=== PATIENT | female | born 1970 ===

== ENCOUNTER 2018-08-22 06:06 | Observation (INO) | payer BC ==
[2018-08-14 09:45] VITALS: BMI 21.9
[2018-08-22] MEDS ORDERED: ePHEDrine 50 mg/ml Inj ONE (07:24)
[2018-08-22] MEDS ORDERED: Midazolam 2 MG/2 ML VIAL ONE (07:24)
[2018-08-22] MEDS ORDERED: Propofol 10 mg/ml Inj (20 ML) ONE (07:24)
[2018-08-22] MEDS ORDERED: Succinylcholine Chloride 20 mg/ml Syr (5 ml) IV ONE (07:24)
[2018-08-22] MEDS ORDERED: Rocuronium 10 mg/ml (5 ml) ONE (07:24)
[2018-08-22] MEDS ORDERED: Lidocaine 4% (Laryng-O-Jet) Kit MM ONE (07:24)
[2018-08-22] MEDS ORDERED: Phenylephrine 10 mg/ml Inj ONE (07:29)
[2018-08-22] MEDS ORDERED: Lactated Ringer's 1,000 ML IV ONE ×2 (08:20→08:25)
[2018-08-22] MEDS: Bupivacaine HCl 0.5% PF (30 ml) Inj ONE ×2 (08:54→09:15)
[2018-08-22] MEDS ORDERED: Dexamethasone 4 mg/1 ml ONE (09:06)
[2018-08-22] MEDS ORDERED: Desflurane Inhalation Anesthetic Liq (240 ml) ONE (09:24)
[2018-08-22] MEDS ORDERED: Neostigmine 1:1000 (1 mg/ml) Inj ONE (10:17)
[2018-08-22] MEDS ORDERED: HYDROmorphone 0.5 mg/0.5 ml ISec IVP PRN (11:08)
[2018-08-22] MEDS ORDERED: Naloxone 0.4 mg/ml Inj (Adult) IVP PRN (11:09)
[2018-08-22] MEDS ORDERED: Oxycodone/Acetaminophen 5/325 mg Tab PO PRN (15:59)
[2018-08-22 16:47] LABS: MEAN CELL VOLUME 78.6 fl (81.0-99.0); MEAN CORPUSCULAR HEMOGLOBIN 24.6 pg (27.0-31.0); MEAN CORPUSCULAR HGB CONC 31.4 g/dL (33.0-37.0); RBC 4.04 Mil/uL (3.80-5.20); RED CELL DISTRIBUTION WIDTH 15.1 % (11.5-14.5); WHITE BLOOD COUNT 16.2 K/uL (4.8-10.8)
[2018-08-22] MEDS: Lactated Ringer's 1,000 ML IV SCH (17:06)
--- NOTE | 2018-08-22 22:00 | OP ---
PROCEDURE DATE: 08/22/2018 PREOPERATIVE DIAGNOSES: Symptomatic fibroid uterus, pelvic pressure and pain, menorrhagia. POSTOPERATIVE DIAGNOSES: Symptomatic fibroid uterus, pelvic pressure and pain, menorrhagia, bowel adhesions to the ovary. OPERATIONS PERFORMED: Robotic hysterectomy, cystoscopy with stent placement and bilateral salpingectomy, lysis of adhesions. SURGEON: Alka Bergman MD SPINNER CONTINUOUS: Aye Gomez MD. She was helpful in creating exposure with hemostasis, suction irrigation, extraction of the specimen and closure of the patient. The procedure would not have been possible without her assistance. ESTIMATED BLOOD LOSS: 50 mL. INTRAVENOUS FLUIDS: The patient received 1500 mL of D5 LR intraoperatively. URINE OUTPUT: The patient put out approximately 1 L of clear urine. COMPLICATIONS: There were no complications. DESCRIPTION OF PROCEDURE: After informed consent was obtained, the patient was taken to the operating room where she was given general anesthesia. She was placed in [place] stirrups, prepped and draped in a normal sterile fashion. Attention was then turned to the urethra, where a cystoscope was inserted into the bladder. The left ureter was identified. The right ureter was identified. We then proceeded to stent the left ureter with a 5-Par[place] catheter; 5 mL of ICG green was injected, and a similar procedure was performed on the right. The cystoscope was then removed from the bladder. Attention was then turned to the vagina, where a weighted speculum was inserted. The cervix was visualized and grasped with a single-tooth tenaculum. The cervix was then gently dilated, then a VCare uterine manipulator was inserted into the uterine cavity and was used as a means to manipulate the uterus. A Herrera catheter was inserted into the bladder to monitor the patient's urinary output. Attention was then turned to the umbilicus. Approximately 4 cm superior to the umbilicus, an 8-mm incision was made. The abdomen was tented upward and a Veress needle was inserted. The placement was confirmed with a fluid-filled syringe. The abdomen was then insufflated to 20 mmHg and an 8-mm robotic port was introduced. Placement was confirmed with a laparoscope. Attention was then turned. The abdomen was then surveyed with the findings noted above. In addition, there were adhesions noted on the left upper quadrant. We then proceeded to infuse Marcaine. Approximately 5 cm superior to the left anterior iliac crest, an 8-mm incision was made and an 8-mm robotic port was introduced under direct visualization. The laparoscopic scissor was then used to lyse the right lower and mid quadrant adhesions. We then proceeded to make an 8-mm incision approximately 5 cm superior to the right anterior iliac crest, where Marcaine was infused, and an 8-mm robotic port was introduced under direct visualization. We then made an incision approximately 10 cm right and lateral to the umbilicus, where Marcaine was infused, and an 8-mm incision was made and robotic port was introduced under visualization. An assistant drafter port was introduced 10 cm left and lateral to the umbilicus under direct visualization. The patient was then placed in steep Trendelenburg. The instruments used for this surgery were PK dissector, Julian Suture Cut, ProGrasp and scissor. The robot was brought along the patient's side and was docked without complication. I then proceeded to the left utero-ovarian ligament where the ligament was serially coagulated and transected with the scissor. We proceeded to the round ligament which in a similar fashion was serially coagulated and transected with the scissor. The vesicouterine peritoneum was then undermined with PK dissector and cut with the scissor down to the level of the VCare cup anteriorly. Attention was then turned to the posterior aspect of the urethra, where in a similar fashion the peritoneum was undermined and dissected down to the VCare cup posteriorly. The uterine arteries were then identified on the left side. They were skeletonized and serially coagulated and transected with the scissor. The left ovary was noted to be adherent to the epiploic of the bowel and that was gently and meticulously dissected away from the left ovary. We then focused our attention to the right side of the uterus, where in a similar fashion the right utero-ovarian ligament was serially coagulated and then transected with the scissor. The round ligament was then identified and serially coagulated and transected with the scissor. The right ovary was adherent to the ovarian fossa, was elevated, filmy and dense adhesions were meticulously dissected away using both sharp and blunt dissection and the ovary was freed. We then proceeded to undermine the vesicouterine peritoneum from the right side and dissected it down to the VCare cup anteriorly. A similar procedure was performed posteriorly. We then identified the uterine arteries. They were skeletonized and serially coagulated down at the level of the VCare cup. The ureters were clearly identified activating our Firefly technology and using ICG green. We then proceeded to amputate the cervix from the vagina using the cautery. The specimen was delivered vaginally. The vaginal cuff was closed with 2-0 on a barbed suture. The abdomen was then copiously irrigated. The irrigant was removed with a suction device. Hemostasis was noted. All instruments were then removed from the patient's abdomen. The robot was undocked successfully. The skin was closed with 3-0 Biosyn and Dermabond. All sponge, lap, needle and instrument counts were correct x2, and the patient was taken to the recovery room in awake and stable condition. Alka Bergman MD [facility]
[2018-08-23] MEDS: Lactated Ringer's 1,000 ML IV SCH ×2 (02:08→11:48)
[2018-08-23 08:07] VITALS: O2SAT 98
--- NOTE | 2018-08-23 09:19 | CP.SDSHP ---
Same Day Surgery H & P - Allergies Allergies: Allergies morphine Allergy (Intermediate, Verified 08/22/18 07:57) ITCHING itchy nose - Physical Exam Vital Signs: Vital Signs 08/23/18 08/23/18 04:22 08:06 Temperature 98.5 F 98.7 F Pulse Rate 68 72 Respiratory 20 20 Rate Blood Pressure 100/63 96/60 L O2 Sat by Pulse 100 98 Oximetry Short Stay Discharge - Short Stay Discharge Admitting Diagnosis/Reason for Visit: D25.9/ R10.2/ Progress Note/Discharge Note with Instructions: Patient doing well ambulating tolerating diet pain well controlled denies vagi nal bleeding Vital signs stable afebrile Abdomen nontender nondistended incisions clean dry intact Extremities no Homans Venodyne's in place Postop day 1 Patient cleared for discharge Follow-up with Dr. Bergman in 1 week Prescriptions for Percocet Motrin and Colace provided No heavy lifting Nothing per vagina
[2018-08-23 17:53] VITALS: BP 122/78; PULSE 78; RESP 15; TEMP 97
== END 2018-08-23 15:07 | disposition home or self-care (01) ==
LOC: H.OPSURG 06:06 → H.MEDSURG1 15:59
PROVIDERS: ADMIT Obstetrics & Gynecology Gynecology; ATTEND Obstetrics & Gynecology Gynecology
DX: D25.9 Leiomyoma of uterus, unspecified (principal); K66.0 Peritoneal adhesions (postprocedural) (postinfection); N92.0 Excessive and frequent menstruation with regular cycle; N72 Inflammatory disease of cervix uteri
CPT/HCPCS: 36415; 52332; 58571; 85027; 86850; 86900; 88305; 94770; C1729; G0378; J0690; J1100; J1170; J2001; J2250; J2370; J2405; J2704; J2710; J3010; J7030; J7120; S2900